=== PATIENT | male | born 1960 ===

== ENCOUNTER 2021-02-16 06:00 | Day surgery (SDC) | payer OTHER ==
[~2021-02-16 06:00] MED LIST: ATIVAN PO; INDERA PO; PROZAC20 MG PO; RESTORIL PO; VASOTEC10 MG PO
[2021-02-16] MEDS ORDERED: PERCOCET 5-3251 EACH PO (11:27)
[2021-02-16] MEDS ORDERED: RECTICARE30 GM TOP (11:29)
== END 2021-02-16 19:05 | disposition home or self-care (01) ==
LOC: CIR.AMB 06:00
PROVIDERS: ATTEND Surgery
DX: K64.8 Other hemorrhoids (principal); K64.1 Second degree hemorrhoids; Z20.822 Contact with and (suspected) exposure to COVID-19

== ENCOUNTER 2021-03-09 11:24 | Emergency (ER) | payer OTHER ==
[~2021-03-09] VITALS: Ht 172.7 cm; Wt 91.6 kg
[~2021-03-09 11:24] MED LIST changes: +PERCOCET 5-3251 EACH PO; +RECTICARE30 GM TOP
[2021-03-09] MEDS ORDERED: ATIVAN0.5 M1 PO (11:51)
[2021-03-09] MEDS ORDERED: RESTORIL30 MG PO (11:51)
[2021-03-09] MEDS ORDERED: INDERAL LA80 MG PO (11:51)
== END 2021-03-09 14:39 | disposition home or self-care (01) ==
LOC: ER 11:24
DX: K64.4 Residual hemorrhoidal skin tags (principal)